=== PATIENT | male | born 1955 | race Caucasian/White ===

== ENCOUNTER 2022-03-31 16:44 | Emergency (ER) | payer OTHER ==
[~2022-03-31] VITALS: Ht 167.6 cm; Wt 79.8 kg
[2022-03-31] MEDS ORDERED: METFORMIN HCL1000 M3 (16:55)
== END 2022-03-31 18:58 | disposition home or self-care (01) ==
LOC: ER 16:44
DX: M54.31 Sciatica, right side (principal)

== ENCOUNTER 2023-10-16 08:29 | Outpatient (CLI) | payer OTHER ==
[~2023-10-16 08:29] MED LIST: METFORMIN HCL1000 M3
[2023-10-16 09:59] LABS: URINE APPEARANCE Clear; URINE BILIRRUBIN Negative (NEGATIVE); URINE BLOOD Negative; URINE COLOR Yellow; URINE KETONE Negative (NEGATIVE); URINE LEUKOCYTE Negative; URINE NITRATE Negative; URINE PROTEIN Negative (NEGATIVE); URINE UROBILINOGEN 0.2 E.U./dl
[2023-10-16 10:05] LABS: URINE BACTERIA 15.1 uL (0.0-1933); URINE EPITHELIAL CELLS 1.8 uL (0.0-38.8)
[2023-10-16 10:11] LABS: HEMATOCRIT 45.3 % (39.0-48.0); HEMOGLOBIN 15.2 g/dL (13-16.00); MEAN CELL VOLUME 90.2 fL (80.0-100.00); MEAN CORPUSCULAR HEMOGLOBIN 30.3 pg (27.00-32.0); MEAN CORPUSCULAR HGB CONC 33.6 g/dl (32.0-36.0); PLATELET COUNT 169 K/uL (150-450); RED BLOOD COUNT 5.02 M/uL (4.00-6.00); RED CELL DISTRIBUTION WIDTH 14.4 % (11.5-14.5)
[2023-10-16 10:16] LABS: URINE GLUCOSE >=1000 MG/DL (NEGATIVE); URINE WBC 1.3 uL (0.0-23.2)
[2023-10-16 11:08] LABS: CALCIUM 9.7 mg/dL (8.5-10.1); CHOL HDL RATIO 1.7 (0-5.0); CREATININE SERUM 0.88 mg/dL (0.70-1.30); GFR 86.64; PHOSPHOROUS 3.6 mg/dL (2.5-4.9); POTASSIUM 4.61 mEq/L (3.5-5.1)
== END 2023-10-16 08:30 | disposition home or self-care (01) ==
LOC: LAB 08:29
DX: D64.9 Anemia, unspecified (principal); R10.9 Unspecified abdominal pain; E78.2 Mixed hyperlipidemia; E11.65 Type 2 diabetes mellitus with hyperglycemia; N39.0 Urinary tract infection, site not specified; E53.8 Deficiency of other specified B group vitamins; R80.9 Proteinuria, unspecified

== ENCOUNTER → 2024-10-14 09:58 | Outpatient (CLI) | payer OTHER ==
[2024-10-14 10:48] LABS: URINE APPEARANCE Clear; URINE BILIRRUBIN Negative (NEGATIVE); URINE BLOOD Negative; URINE COLOR Yellow; URINE KETONE Negative (NEGATIVE); URINE LEUKOCYTE Negative; URINE NITRATE Negative; URINE PROTEIN Negative (NEGATIVE); URINE UROBILINOGEN 0.2 E.U./dl
[2024-10-14 10:49] LABS: URINE BACTERIA 73.2 uL (0.0-1933); URINE EPITHELIAL CELLS 3.0 uL (0.0-38.8)
[2024-10-14 10:56] LABS: URINE CAST 0.00 uL (0.0-1.40); URINE GLUCOSE >=1000 MG/DL (NEGATIVE); URINE RBC 0.7 uL (0.0-20.8); URINE WBC 1.6 uL (0.0-23.2)
[2024-10-14 11:14] LABS: BASO % 0.6 % (0.1-1.2); EOS # 0.20 (0.04-0.54); EOS % 2.9 % (0.7-7.0); LYMPH # 1.75 (1.18-3.74); LYMPH % 25.7 % (19.3-53.1); MEAN PLATELET VOLUME 11.30 fl (9.4-12.4); MONO # 0.69 (0.24-0.82); MONO % 10.1 % (4.7-12.5); NEUT # 4.11 (1.56-6.13); NEUT % 60.3 % (34.0-71.1); RED CELL DISTRIBUTION WIDTH 13.1 % (11.6-14.4)
[2024-10-14 12:18] LABS: ALT/SGPT 107.0 U/L (12-78); AST/SGOT 59.0 U/L (15-37); BILIRUBIN TOTAL 1.7 mg/dL (0.3-1.2); BILIRUBIN,CONJUGATED 0.36 mg/dL (0.0-0.2); BUN CREA RATIO 15.0 (7.0-25.0); CHOL HDL RATIO 1.8 (0-5.0); CREATININE SERUM 0.84 mg/dL (0.70-1.30); FE 154.0 ug/dl (65-175); GFR 91.14; GLUCOSE FASTING 136.0 mg/dL (65-100); HDL 45.0 mg/dl (40-60); LDL 20.0 mg/dl (0-130); OSMOLALITY SERUM 285.0 MOSM/KG (275-295); VLDL 14.0 (0-39)
[2024-10-16 14:52] LABS: FOLIC ACID > 20.00 ng/ml (4.78-20)
== END | disposition home or self-care (01) ==
LOC: LAB 09:58
DX: D64.9 Anemia, unspecified (principal); R10.9 Unspecified abdominal pain; K76.0 Fatty (change of) liver, not elsewhere classified; E11.65 Type 2 diabetes mellitus with hyperglycemia; N39.0 Urinary tract infection, site not specified; R80.9 Proteinuria, unspecified; E53.8 Deficiency of other specified B group vitamins; R74.01 Elevation of levels of liver transaminase levels

== ENCOUNTER 2024-10-16 11:23 | Outpatient (CLI) | payer OTHER | END 2024-10-16 11:32 | disposition home or self-care (01) | LOC: SONOGRAMA 11:23 | DX: K76.0 Fatty (change of) liver, not elsewhere classified (principal) ==

== ENCOUNTER 2024-12-14 12:58 | Outpatient (CLI) | payer OTHER ==
[2024-12-14 14:43] LABS: CREATININE SERUM 0.92 mg/dL (0.70-1.30); GFR 82.06
== END 2024-12-14 13:04 | disposition home or self-care (01) ==
LOC: LAB 12:58
PROVIDERS: ATTEND Radiology Diagnostic Radiology
DX: R19.06 Epigastric swelling, mass or lump (principal)

== ENCOUNTER 2024-12-18 09:48 | Outpatient (CLI) | payer OTHER | END 2024-12-18 09:59 | disposition home or self-care (01) | LOC: MRI 09:48 | PROVIDERS: ATTEND Specialist | DX: R19.06 Epigastric swelling, mass or lump (principal) | CPT/HCPCS: 74183; Q9965 ==